=== PATIENT | female | born 1940 | race Caucasian/White ===

== ENCOUNTER 2020-08-14 05:59 | Emergency (ER) | payer MEDICARE, OTHER ==
[~2020-08-14] VITALS: Ht 177.8 cm; Wt 144.0 kg
[2020-08-14] MEDS: NOREPINEPHRINE 8 MG in SODIUM CHLORIDE 0.9% 242 ML IV PRN ×5 (06:14→11:13)
--- NOTE | 2020-08-14 06:15 | NUR ---
LEVO AND EPI STARTED PER DR. ZAFAR VERBAL ORDER AT RATE THAT PT. CAME IN ON FROM [facility]; SEE MAR.
[2020-08-14] MEDS ORDERED: SODIUM CHLORIDE FLUSH 10ML SYR IVF ONE (06:30)
[2020-08-14] MEDS ORDERED: EPINEPHRINE 5 MG in SODIUM CHLORIDE 0.9% 245 ML IV PRN (06:30)
[2020-08-14] MEDS ORDERED: SODIUM CHLORIDE 0.9% 1,000ML IVBOLUS ONE (06:30)
[2020-08-14] MEDS ORDERED: PLEASE ENTER ALLERGIES MC SCH (06:30)
[2020-08-14] MEDS ORDERED: SODIUM CHLORIDE 0.9% 1,000 ML IV ONE (06:30)
--- NOTE | 2020-08-14 06:32 | NUR ---
ATTEMPTED IV AND CENTRAL LINE DRESSING CHANGES. PT. WITH SIGNIGICANT AMOUNT OF BLEEDING FROM SITES; MAKING DRESSING CHANGES DIFFICULT.
--- NOTE | 2020-08-14 06:37 | NUR ---
LAUREL VIERA, DAUGHTER [phone]
--- NOTE | 2020-08-14 06:38 | NUR ---
DR. ZAFAR BACK IN WITH PAULINE RODRIGUEZ. DR. ZAFAR ATTEMPTED TO GET IN TOUCH WITH PT. ABOUT PT. STATUS. UNABLE TO REACH . TITRATING LEVO AND EPI UP FOR B/P.
[2020-08-14 06:51] LABS: D-DIMER (DIC) 1.1 ug/mlFEU (0.00-0.52); MEAN CORPUSCULAR HEMOGLOBIN 30.7 pg (27.0-34.8); MEAN CORPUSCULAR HGB CONC 31.5 g/dL (32.4-35.8); MEAN PLATELET VOLUME 10.3 fL (7.4-10.4); PLATELET COUNT 173 x10^3/uL (130-400); PROTIME 32.7 Seconds (9.6-11.5); RED BLOOD COUNT 2.86 x10^6/uL (3.82-5.3); RED CELL DISTRIBUTION WIDTH 17.8 % (9.6-15.2)
[2020-08-14 06:56] LABS: ALANINE AMINOTRANSFERASE 133 U/L (12-78); ALBUMIN 1.2 g/dL (3.4-5.0); ANION GAP 13 mmol/L (5-15); CALCIUM 6.8 mg/dL (8.5-10.1); CHLORIDE 109 mmol/L (98-107); CREATININE 5.17 mg/dL (0.55-1.02)
[2020-08-14 07:00] LABS: ALKALINE PHOSPHATASE 766 U/L (45-117)
[2020-08-14] MEDS ORDERED: SODIUM CHLORIDE FLUSH 10ML SYR IVF PRN (07:00)
--- NOTE | 2020-08-14 07:00 | NUR ---
SBAR RPT REC'D AND ASSUMED PT CARE. EPI AND LEVO GTTS VERIFIED. BP CUFF PLACED ON RIGHT FOREARM WITH NIBP EASILY OBTAINED. PT IS UNRESPONSIVE TO STERNAL RUB, PUPILS ORE FIXED AT 2MM. RIGHT GROIN TLC HAS A STEADY LEAKING OF BLOOD NOTED WHICH CONTINUES DESPITE MANUAL PRESSURE APPLIED. WILL CONT TO MONITOR. ALL 2 LUMENS FLUSH EASILY WITH BLOOD RTN.
[2020-08-14 07:03] LABS: BILIRUBIN,TOTAL 17.6 mg/dL (0.2-1.0)
--- NOTE | 2020-08-14 07:03 | NUR ---
BS REPORT TO MARCELA ALEJANDRA.
[2020-08-14] MEDS ORDERED: LACTULOSE 20 GM/30 ML UDC NG ONE (07:05)
[2020-08-14 07:21] LABS: MD YES
[2020-08-14 07:23] LABS: ANISOCYTOSIS 1+; BAND#(MANUAL) 4.26 x10^3/uL; BANDS%(MANUAL) 12 % (0-7); LYMPH#(MANUAL) 2.13 x10^3/uL (1-3.4); LYMPHS% (MANUAL) 6 % (22-44); MONOS#(MANUAL) 1.07 x10^3/uL (0.3-2.7); MONOS% (MANUAL) 3 % (2-9); SEG#(MANUAL) 28.05 x10^3/uL (1.8-6.8); SEGS% (MANUAL) 79 % (42-75); TARGET CELLS 1+
[2020-08-14 07:24] LABS: <PLATELET ESTIMATE> ADEQUATE; LARGE PLATELETS 1+; POLYCHROMASIA 1+
[2020-08-14 07:25] LABS: HYPOCHROMIA 1+; PMNS WITH VACUOLES 1+
[2020-08-14] MEDS: EPINEPHRINE 10 MG in SODIUM CHLORIDE 0.9% 240 ML IV PRN ×3 (07:41→11:10)
[2020-08-14 07:48] LABS: ACETONE, SERUM Negative (Negative)
[2020-08-14] MEDS ORDERED: ARTIFICIAL TEARS OINT 3.5 GM EACHEYE PRN (09:00)
[2020-08-14] MEDS ORDERED: MICROFIBRILLAR COLLAGEN 1 GM TP ONE (09:16)
--- NOTE | 2020-08-14 09:30 | NUR ---
PT CLEANED AND CLEAN LINENS PLACED.
--- NOTE | 2020-08-14 10:15 | NUR ---
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 STEADY LEAK OF BLOOD AT INSERTION SITE. AREA CLEANED PER PROTOCOL, ATTEMPT TO OBTAIN HEMOSTASIS WITH AVITENE WAS UNSUCCESSFUL, DRESSING REINFORCED WITH ADDITONAL GAUZE.
[2020-08-14] MEDS ORDERED: SODIUM BICARBONATE 8.4% 150 MEQ in DEXTROSE 5% 1,000 ML IV SCH (10:30)
[2020-08-14] MEDS ORDERED: PIPERACILLIN/TAZO/PMX 2.25GM 50 ML IVPB SCH (10:30)
--- NOTE | 2020-08-14 10:30 | NUR ---
COMPLETE BED BATH COMPLETED, PT TRANSFERED ONTO HOSPITAL BED FOR COMFORT, PILLOW PLACED AND DANYEL ARMS SUPPORTED WITH PILLOWS. PT EXHIBITED NO ACTIVE RESPONSE NOR WITHDRAWAL OR S/S OF PAIN WITH THE PROCEDURE.
--- NOTE | 2020-08-14 10:30 | NUR ---
RECTAL TEMP PROBE INSERTED, PT WITH SAMUEL COLORED SOFT STOOL NOTED IN RECTUM. TEMP 93.9. MANUEL HUGGER WARMING IN PLACE.
[2020-08-14 10:49] LABS: TROPONIN I 0.338 ng/mL (0.000-0.045)
--- NOTE | 2020-08-14 11:27 | NUR ---
PT WITH RING X 2 (R 4TH FINGER & L 4TH FINGER) DIGITS TOO SWOLLEN TO REMOVE. RING CUTTER USEDAND RINGS REMOVED W/O DIFFICULTY. NO INJURTY TO SKIN NOTED. RINGS PLACED IN PLASTIC BAG WITH PT LABEL.
[2020-08-14] MEDS ORDERED: LORazepam 2 MG/ML, 1ML IVPush PRN (11:30)
[2020-08-14] MEDS ORDERED: LORazepam 2 MG/ML, 1ML IV ONE (11:30)
[2020-08-14] MEDS ORDERED: MORPHINE SULFATE 4 MG/ML, 1ML IVPush PRN (11:30)
[2020-08-14] MEDS ORDERED: MORPHINE SULFATE 4 MG/ML, 1ML IV ONE (11:30)
[2020-08-14 11:35] VITALS: BP 110/88
[2020-08-14] MEDS ORDERED: LORazepam 2 MG/ML, 1ML ONE (11:55)
[2020-08-14] MEDS ORDERED: MORPHINE SULFATE 4 MG/ML, 1ML ONE (11:55)
--- NOTE | 2020-08-14 11:55 | NUR ---
PER CONVERSATION WITH DR GREEN. PT IS COMFORT CARE ONLY. PLAN TO GIVE ATIVAN AND MORPHINE FOR COMFORT DISCUSSED. WILL DC ALL OTHER MEDICATONS PER DR GREEN'S ORDERS. RESP NOTIFIED FOR EXTUBATION.
--- NOTE | 2020-08-14 12:08 | NUR ---
PT NOW WITH EYES OPEN AND BINKS AND SQUEEZES HER EYES OPEN AND SHUT TO COMMAND AND WIGGLES FINGERS ON LEFT HAND VERY WEAK TO COMMAND. VERBAL REASSURANCE GIVEN.
--- NOTE | 2020-08-14 13:02 | NUR ---
LATE ENTRY FOR EVENTS FROM 1200. THIS RN AND AYO RN AT BEDSIDE. PROCESS HELPER AT BEDSIDE FOR LAST RIGHTS. PT MEDICATED NOTED WITH GOOD RESPONSE. AND VASOACTIVE GTTS OFF. ETT REMOVED AT 1225 BY RT W/O DIFFICULTY AND PT TOLLERATED WELL WITH NO S/S OF DISTRESS. RNS AND PROCESS HELPER REMAIN AT BEDSIDE WITH PT. PT PRONOUNED BY 2RNS PER ORDERS AT 1232. DONOR NETWORK AND CORONERS OFFICE NOTIFIED PT DECLINED BY BOTH. DAUGHTER DEQUAN VIERA NOTIFIED OF PTS DEMISE.
== END 2020-08-14 16:05 | disposition expired ==
LOC: ED 06:13 → EDIP 06:51 → UNDOADMIN 06:51 → ED 15:58
DX: K72.01 Acute and subacute hepatic failure with coma (principal); R65.21 Severe sepsis with septic shock; N17.8 Other acute kidney failure; J96.01 Acute respiratory failure with hypoxia; G93.41 Metabolic encephalopathy; E87.2 Acidosis; K83.09 Other cholangitis; R41.82 Altered mental status, unspecified; I10 Essential (primary) hypertension; E11.9 Type 2 diabetes mellitus without complications
CPT/HCPCS: 36600; 71045; 76700; 80053; 82010; 82140; 82803; 83605; 83880; 84145; 84484; 85025; 85049; 85379; 85384; 85610; 85730; 87070; 87147; 87205; 93005; 96361; 96365; 96368; 96375; 99291; 99292; J0171; J2060; J2270; J2543; J7030; J7050; J7070; 31500; 94002